=== PATIENT | female | born 1975 | race Caucasian/White ===

== ENCOUNTER 2017-11-11 15:48 | Emergency (ER) | payer BC, SELFPAY ==
[2017-11-11 15:49] VITALS: BP 134/72; PULSE 77; RESP 15; TEMP 36.8; O2SAT 97; BMI 25.9
--- NOTE | 2017-11-11 16:04 | ED.VISSUMM ---
- ER Visit Summary Date of Service: 11/11/17 Chief Complaint: Back pain History of Present Illness: The patient is a 42 F with history of sciatica, presents with right-sided buttock pain radiating into her leg. She had seen a chiropractor recently but her pain is worse today. No bowel bladder compromise. No difficulty ambulating, no weakness or paresthesias. No saddle anesthesia. Physical Examination: Otherwise unremarkable exam she is a soft and nontender abdomen. Her back exam mostly is normal without any pain most of her pain is in the right upper buttock region radiating to her leg she does have a positive straight leg test. Normal reflexes normal plantar flexion of both feet normal dorsiflexion of both great toes. Emergency Department Course and Treatment: Patient will be treated with analgesia muscle relaxants and she will be given steroids for home. Discharge stable condition Impression: [Sciatica] This note was generated with [employer] dictation software. It may contain incorrect words, spelling, and punctuation that were not noted in review of the chart prior to signing ED Disposition - Plan for ED Patient: Disposition: Home or Assisted Living Chief Complaint: Back Instructions: ED Sciatica Prescriptions: Prednisone 60 mg PO DAILY 5 Days #15 tab Referrals: Care Physician,No Primary [Primary Care Provider] -
--- NOTE | 2017-11-11 16:08 | ED.DCSUM_ITS ---
- ER Visit Summary Date of Service: 11/11/17 Chief Complaint: Back pain History of Present Illness: The patient is a 42 F with history of sciatica, presents with right-sided buttock pain radiating into her leg. She had seen a chiropractor recently but her pain is worse today. No bowel bladder compromise. No difficulty ambulating, no weakness or paresthesias. No saddle anesthesia. Physical Examination: Otherwise unremarkable exam she is a soft and nontender abdomen. Her back exam mostly is normal without any pain most of her pain is in the right upper buttock region radiating to her leg she does have a positive straight leg test. Normal reflexes normal plantar flexion of both feet normal dorsiflexion of both great toes. Emergency Department Course and Treatment: Patient will be treated with analgesia muscle relaxants and she will be given steroids for home. Discharge stable condition Impression: [Sciatica] This note was generated with [employer] dictation software. It may contain incorrect words, spelling, and punctuation that were not noted in review of the chart prior to signing ED Disposition - Plan for ED Patient: Disposition: Home or Assisted Living Chief Complaint: Back Instructions: ED Sciatica Prescriptions: Prednisone 60 mg PO DAILY 5 Days #15 tab Referrals: Care Physician,No Primary [Primary Care Provider] -
[2017-11-11 16:13] VITALS: BP 154/70; PULSE 80; RESP 14; O2SAT 98
[2017-11-11] MEDS: HYDROcodone Bitartrate/Apap 5/325 Tablet PO (16:18)
[2017-11-11] MEDS: diazePAM 5 MG Tablet PO (16:18)
== END 2017-11-11 16:27 | disposition home or self-care (01) ==
LOC: ED 16:20
PROVIDERS: Emergency Provider Emergency Medicine
DX: M54.31 Sciatica, right side (principal)
CPT/HCPCS: 99283